=== PATIENT | male | born 1970 | race Caucasian/White ===

== ENCOUNTER 2018-10-09 12:39 | Observation (INO) ==
[2018-10-09] MEDS ORDERED: ASPIRIN PO ONE (12:43)
[2018-10-09] MEDS ORDERED: NITROGLYCERIN TOP ONE (13:15)
--- NOTE | 2018-10-09 13:28 | EKG Report ---
Test Performed on : 10/09/2018 12:47:56 PM Test Reason : cp Blood Pressure : / mmHG Vent. Rate : 070 BPM Atrial Rate : 070 BPM P-R Int : 148 ms QRS Dur : 100 ms QT Int : 362 ms P-R-T Axes : 038 -05 032 degrees QTc Int : 390 ms Normal sinus rhythm. Minimal voltage criteria for LVH, may be normal variant Borderline ECG When compared with ECG of 14-JAN-2017 14:44, No significant change was found Unconfirmed Result
[2018-10-09 13:45] LABS: BASO# 0.03 X1000 (0.0-0.2); BASO% 0.6 % (0.0-0.8); EOS# 0.11 X1000 (0.0-0.7); HEMATOCRIT 43.7 % (42.0-52.0); HEMOGLOBIN 15.4 g/dL (14.0-18.0); LYMPH# 1.53 X1000 (1.2-3.4); LYMPH% 28.3 % (20.5-51.1); MCH 30.2 PG (27-31); MCHC 35.2 g/dL (33-37); MCV 85.7 FL (81-99); MONO# 0.48 X1000 (0.11-0.59); MONO% 8.9 % (1.7-9.3); MPV 10.3 FL (7.4-10.4); NEUT# 3.26 X1000 (1.4-6.5); NEUT% 60.2 % (42.2-75.2); PLT 201 X1000 (130-400); RDW 13.6 % (11.5-14.5); WBC 5.41 X1000 (4.8-10.8)
--- NOTE | 2018-10-09 13:53 | Diag Imaging Result Doc PS360 ---
EXAM: CHEST-2 VIEWS 10/09/2018 HISTORY: cp TECHNIQUE: PA and lateral chest COMMENT: There is no evidence of acute cardiac or pulmonary disease. Compared to 01/14/2017 there has been no significant change. IMPRESSION: Stable chest. Electronically signed by Luis Fernando Gorman 10/09/2018 1:51 PM
[2018-10-09 14:08] LABS: INR 0.96; PROTIME 13.3 Seconds (11.0-16.0)
[2018-10-09 14:09] LABS: PTT 26.4 Seconds (22.3-41.8)
[2018-10-09 14:15] LABS: AGAP 12; ALBUMIN 4.5 g/dL (3.5-5.0); ALKALINE PHOSPHATASE 154 U/L (32-122); BUN 11 mg/dL (8-22); CALCIUM 9.6 mg/dL (8.8-10.2); CHLORIDE 101 mmol/L (98-107); COSMO 279; CREATININE 0.9 mg/dL (0.7-1.2); ESTIMATED GFR > 60; GLUCOSE 100 mg/dL (70-104); GOT 32 U/L (10-34); GPT 35 U/L (10-44); POTASSIUM 3.9 mmol/L (3.5-5.1); SODIUM 140 mmol/L (136-145); TCO2 27 mmol/L (25-35); TOTAL PROTEIN 7.5 g/dL (6.3-8.3)
[2018-10-09 14:25] LABS: CK PROFILE 631 U/L (24-204)
[2018-10-09 15:10] LABS: CK INDEX 2.8 (0.0-2.5)
[2018-10-09] MEDS ORDERED: TYLENOL PO ONE (15:19)
[2018-10-09] MEDS ORDERED: TORADOL IV ONE (15:19)
[2018-10-09] MEDS ORDERED: LOVENOX 1 MG/KG SUBQ ONE (16:16)
[2018-10-09] MEDS ORDERED: MORPHINE IV PRN (16:17)
[2018-10-09] MEDS ORDERED: TYLENOL PO PRN (16:17)
[2018-10-09] MEDS ORDERED: ZOFRAN ODT PO PRN (16:17)
--- NOTE | 2018-10-09 16:17 | PROVIDER DOCUMENTATION ---
This chart was entered by Stephy Lubin Scribe, acting as scribe for Lino Bronson MD. HPI-Chest Pain - General Chief Complaint: Chest Pain Stated Complaint: CHEST PAIN Time Seen by Provider: 10/09/18 13:04 Source: patient Allergies/Adverse Reactions: Patient Allergies Allergy/AdvReac Type Severity Reaction Status Date / Time No Known Allergies Allergy Verified 03/07/13 01:25 Home Medications: Home Medication List Medication Instructions Recorded Confirmed Last Taken Type Allopurinol 100 mg PO QHS 03/07/13 01/14/17 01/13/17 History Omeprazole [Prilosec] 40 mg PO DAILY 03/07/13 01/14/17 01/13/17 History Atorvastatin Calcium 80 mg PO QHS 01/14/17 01/14/17 01/13/17 History Indomethacin [Indomethacin ER] 75 mg PO QHS 01/14/17 01/14/17 01/13/17 History Lisinopril 20 mg PO QHS 01/14/17 01/14/17 01/13/17 History Metformin HCl [Metformin HCl ER] 500 mg PO QHS 01/14/17 01/14/17 01/13/17 History Metoprolol Succinate 100 mg PO QHS 01/14/17 01/14/17 01/13/17 History Nitroglycerin [Nitrolingual] 4.9 gm TL DIRECTED PRN PRN #1 01/14/17 Unknown Rx spray Prasugrel HCl [Effient] 10 mg PO QHS 01/14/17 01/14/17 01/13/17 History Venlafaxine E.r. [Effexor Xr] 150 mg PO DAILY 01/14/17 01/14/17 01/13/17 History - History of Present Illness-CP Nature of Presenting Problem: [id number] presents to ED cc mild chest pain that is tight and lasts about 5 mins, palpitations, sleepiness and SOB since this morning. Pt reports he had a stent placement in 04/2016. Pt denies any recent med changes. Pt has hx of CAD, HTN, DM and hyperlipidemia. Location: reports: substernal Chest Pain Radiation: reports: neck (left side) Quality of Pain: reports: tightness Severity in ED: mild Onset/Duration: this morning Timing: still present, intermittent Context/Activities at Onset: reports: light activity Modifying Factors: improves with: nothing Associated Symptoms: reports: fatigue, shortness of breath Aspirin Treatment Today: 325 mg x 1, provided by ED Prior Chest Pain/Cardiac Workup: reports: stress test Similar Symptoms Previously?: Yes Recently Seen Here or By Another Healthcare Provider: No Review of Systems - Adult - REVIEW OF SYSTEMS - ADULT Constitutional: reports: see HPI, fatique. denies: chills, fever Eyes: reports: no symptoms reported Ears, Nose, Mouth & Throat: reports: no symptoms reported Cardiovascular: reports: see HPI, chest pain, palpitations. denies: edema, syncope Respiratory: reports: see HPI, shortness of breath. denies: cough, wheezing Gastrointestinal: reports: no symptoms reported Genitourinary: reports: no symptoms reported Musculoskeletal: reports: no symptoms reported Integumentary: reports: no symptoms reported Neurological: reports: no symptoms reported Psychiatric: reports: no symptoms reported Endocrine: reports: no symptoms reported Hematologic/Lymphatic: reports: no symptoms reported Allergic/Immunologic: reports: no symptoms reported All Other Systems: Reviewed and Negative Past History - Adult - PAST MEDICAL HISTORY-ADULT Review of Records: reports: Nursing Assessment Review, Medications Reviewed, Social history reviewed & non-contributory. Major Childhood Illnesses: reports: denies history Cardiovascular: reports: CAD, HTN, hyperlipidemia Respiratory: reports: sleep apnea Gastrointestinal: reports: GERD Obstetrical/Gynecological: reports: denies history Genitourinary: reports: denies history Musculoskeletal: reports: denies history Neurological: reports: denies history Endocrine/Immune: reports: Diabetes Other Conditions: reports: denies history - PRIOR SURGERIES/PROCEDURES Surgical/Procedure History: reports: cardiac stent, hernia repair, back/neck - IMMUNIZATION STATUS Childhood Immunizations: See Nurse Assessment Flu Vaccine: See Nurse Assessment - FAMILY HISTORY Family History: reviewed, not pertinent - SOCIAL HISTORY Smoking: denies Substance Use: alcohol Alcohol Use Frequency: rarely Physical Exam-General - PHYSICAL EXAM-ADULT Initial Vital Signs Reviewed: Yes - CONSTITUTIONAL General Appearance: appears well, alert, no apparent distress. negative: anxious, obtunded, combative - EYES Eyes: PERRL/EOMI, pink conjunctivae. negative: meningismus, pale conjunctivae, photophobia - HEAD, EARS, NOSE, MOUTH & THROAT HENMT: normocephalic/atraumatic, moist mucous membranes, normal ENT inspection. negative: angioedema, dental decay, hearing deficit - NECK Neck: non-tender, full range of motion, supple, normal inspection. negative: Brudzinski's sign, carotid bruit, C-spine tenderness - RESPIRATORY Respiratory: chest non-tender, lungs clear, normal breath sounds, no pleuratic chest pain, no respiratory distress, no accessory muscle use. negative: cr ackles, rales, rhonchi, stridor, wheezing - CARDIOVASCULAR Cardiovascular: normal peripheral pulses, regular rate, rhythm, no edema, no gallop, no JVD, no murmur. negative: bradycardia, tachycardia - GASTROINTESTINAL (ABDOMEN) Abdominal Exam: normal bowel sounds, non tender, soft. negative: distended, guarding, rigid, rebound, tenderness - LYMPHATIC Lymphatic: no adenopathy. negative: enlargement, striations, streaking - MUSCULOSKELETAL Back Exam: normal inspection, no CVA tenderness, no vertebral tenderness. negative: swelling Extremity: normal range of motion, non-tender, normal gait, normal inspection, no pedal edema, no calf tenderness, normal capillary refill, pelvis stable. negative: deformity, inflammation - SKIN Integumentary: normal color, normal turgor, warm/dry, other (tattoo 'sleeves' down both arms). 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 negative: facial droop, focal weakness - PSYCHIATRIC Psych/Mental Status: normal mood/affect, normal thought content, normal thought process, oriented x 3. negative: disoriented x 3, anxious, disheveled, depressed affect - HEART Score HEART Score: History: Highly Suspicious HEART Score: ECG: Normal HEART Score: Age: 45-65 Years HEART Score: Risk Factors for Atherosclerotic Disease: > or = 3 Risk Factors or History of Atherosclerotic Disease HEART Score: Troponin: < or = Normal Limit Total HEART Score:: 5 Progress - PLAN OF CARE/RESULTS Progress/Plan/Lab Results: Vital Signs - 8 hr 10/09/18 12:51 10/09/18 12:57 10/09/18 14:12 Temperature 97.4 F L Pulse Rate 73 74 Respiratory Rate 16 18 Blood Pressure 141/90 149/102 O2 Sat by Pulse Oximetry 100 100 Laboratory Results - last 24 hr 06/10/09/18 10/09/18 13:35 13:35 13:35 WBC 5.41 RBC 5.10 Hgb 15.4 Hct 43.7 MCV 85.7 MCH 30.2 MCHC 35.2 RDW Std Deviation 13.6 Plt Count 201 MPV 10.3 Immature Gran % (Auto) 0.0 Neut % (Auto) 60.2 Lymph % (Auto) 28.3 Cowley % (Auto) 8.9 Eos % (Auto) 2.0 Baso % (Auto) 0.6 Immature Gran # (Auto) 0.00 Neut # (Auto) 3.26 Lymph # (Auto) 1.53 Cowley # (Auto) 0.48 Eos # (Auto) 0.11 Baso # (Auto) 0.03 PT INR PTT (Actin FS) Sodium 140 Potassium 3.9 Chloride 101 Carbon Dioxide 27 Anion Gap 12 BUN 11 Creatinine 0.9 Estimated GFR/1.73 m2 > 60 BUN/Creatinine Ratio 12 Glucose 100 Calculated Osmolality 279 Calcium 9.6 Total Bilirubin 0.60 AST 32 ALT 35 Alkaline Phosphatase 154 H Creatine Kinase 631 H Creatine Kinase Index 2.8 H CK-MB (CK-2) 17.60 H Troponin T Xsy-[id number]-Ozcxccuxyaq Pept 8 Total Protein 7.5 Albumin 4.5 Globulin 3.0 Albumin/Globulin Ratio 2.0 10/09/18 10/09/18 10/09/18 13:35 13:35 15:08 WBC RBC Hgb Hct MCV MCH MCHC RDW Std Deviation Plt Count MPV Immature Gran % (Auto) Neut % (Auto) Lymph % (Auto) Cowley % (Auto) Eos % (Auto) Baso % (Auto) Immature Gran # (Auto) Neut # (Auto) Lymph # (Auto) Cowley # (Auto) Eos # (Auto) Baso # (Auto) PT 13.3 INR 0.96 PTT (Actin FS) 26.4 Sodium Potassium Chloride Carbon Dioxide Anion Gap BUN Creatinine Estimated GFR/1.73 m2 BUN/Creatinine Ratio Glucose Calculated Osmolality Calcium Total Bilirubin AST ALT Alkaline Phosphatase Creatine Kinase Creatine Kinase Index CK-MB (CK-2) Troponin T < 0.010 < 0.010 Gsx-G-Bxhtxzipiap Pept Total Protein Albumin Globulin Albumin/Globulin Ratio 10/09/18 15:08 WBC RBC Hgb Hct MCV MCH MCHC RDW Std Deviation Plt Count MPV Immature Gran % (Auto) Neut % (Auto) Lymph % (Auto) Cowley % (Auto) Eos % (Auto) Baso % (Auto) Immature Gran # (Auto) Neut # (Auto) Lymph # (Auto) Cowley # (Auto) Eos # (Auto) Baso # (Auto) PT INR PTT (Actin FS) Sodium Potassium Chloride Carbon Dioxide Anion Gap BUN Creatinine Estimated GFR/1.73 m2 BUN/Creatinine Ratio Glucose Calculated Osmolality Calcium Total Bilirubin AST ALT Alkaline Phosphatase Creatine Kinase 553 H Creatine Kinase Index CK-MB (CK-2) Troponin T Mmw-R-Ekvjqgmhbhg Pept Total Protein Albumin Globulin Albumin/Globulin Ratio Orders Category Date Time Status Cardiac Monitoring DIRECTED Care 10/09/18 12:43 Active Nursing- Obtain EKG once Care 10/09/18 15:00 Active Oxygen Therapy- ED Nursing DIRECTED Care 10/09/18 12:43 Active Saline Loc NOW Care 10/09/18 12:43 Active Heart Healthy Diet Diet 10/09/18 16:14 Active CHEST-2 VIEWS [RAD] Stat Exams 10/09/18 12:43 Completed CBC WITH ELECTRONIC DIFF [HEME] Stat Lab 10/09/18 13:35 Completed CK PROFILE [SP CHEM] Stat Lab 10/09/18 13:35 Completed CK PROFILE [SP CHEM] Stat Lab 10/09/18 15:08 Results COMPREHENSIVE METABOLIC PANEL [CHEM] Stat Lab 10/09/18 13:35 Completed PRO B-NATRIURETIC PEPTIDE Stat Lab 10/09/18 13:35 Completed PROTIME WITH INR [COAG] Stat Lab 10/09/18 13:35 Completed PTT [COAG] Stat Lab 10/09/18 13:35 Completed TROPONIN T Stat Lab 10/09/18 13:35 Completed TROPONIN T Stat Lab 10/09/18 15:08 Completed Acetaminophen [Tylenol] Med 10/09/18 15:19 Discontinued 1,000 mg PO NOW ONE Aspirin Med 10/09/18 12:43 Discontinued 325 mg PO NOW ONE Enoxaparin 1 mg/kg [Lovenox 1 mg/kg] Med 10/09/18 16:16 Once 1 each SUBQ NOW ONE Ketorolac [Toradol] Med 10/09/18 15:19 Discontinued 30 mg IV NOW ONE Nitroglycerin Med 10/09/18 13:15 Discontinued 1 inch TOP NOW ONE CP/SOB/Palp >45 yrs of Age Stat Oth 10/09/18 12:43 Ordered EKG [EKG] Stat Ther 10/09/18 12:43 Draft EKG [EKG] Stat Ther 10/09/18 15:00 Ordered Result Diagrams: 10/09/18 13:35 10/09/18 13:35 - REASSESSMENT Reassessment #1 Time Reassessed: 15:21 Status: improving (CP has recurrede once only, briefly. Complains of throbbing WHITE from NTG. Will give Acetaminophen and toradol for headache. Awaitng second troponin to determine admission vs transfer. I have discussed with patient he would not be going home.) Reassessment #2 Time Reassessed: 16:16 Status: improving - EKG 1 Time of EKG reading by physician:: 12:47 EKG Read and Signed by:: Lino Bronson EKG Interpretation (*Must complete 3 of following elements*): Abnormal Rate: 70 Rhythm: normal sinus QRS: LVH ST Wave: normal - XRAY 1 XRAY: Bilateral XRAY Study: Chest Impression: See EMR Report (IMPRESSION: Stable chest. Electronically signed by Luis Fernando Gorman 10/09/2018 1:51 PM) - CONSULTS/PCP/HOSPITALIST Notification #1 *Consult/PCP/Hospitalist*: Mara Time Discussed: 16:16 Consult Disposition: Admit Departure - Departure Date of Disposition Decision: 10/09/18 Time of Disposition Decision: 16:16 DIAGNOSIS: Unstable angina pectoris due to coronary arteriosclerosis Disposition: ADMITTED INPATIENT 09 Certified Medical Emergency: Emergent Condition: Stable Referrals and Follow-Ups: Juan Munroe MD [Primary Care Provider] - - Critical Care Note This patient required my direct & personal management of CC.: No Attestation - Physician/ DWAIN Attestation Patient care was provided by Advanced Practice Provider:: No The physician spent face to face time with patient:: Yes Advanced Practice Provider documentation review:: Supervising physician onsite and consulted in the evaluation and care of this patient. The physician did have a face to face encounter with the patient. This chart was documented by the indicated scribe, (Stephy Lubin Scribe) and accurately reflects the services I performed and decisions made by Audie joyner Kent A., MD, as attested by the provider's signature.
[2018-10-09 16:21] LABS: CK INDEX 2.8 (0.0-2.5); CK-MB 15.3 ng/mL (0.0-5.0)
[2018-10-09] MEDS ORDERED: LOVENOX SUBQ ONE (16:30)
--- NOTE | 2018-10-09 21:20 | HISTORY AND PHYSICAL ---
CHIEF COMPLAINT: Chest pain. HISTORY OF PRESENT ILLNESS: The patient is a very pleasant 48-year-old male who notes that he has had chest pain with some tightness to the left side of his chest. Notes that he had a stress test on either 06/03 or 06/04 which was abnormal and he had a stent. States that although this pain is similar, it is not quite the same. Notes that he has had some palpitations. He has been more short of breath, more fatigued. ALLERGIES: No known drug allergies. MEDICATIONS: Allopurinol 100, Prilosec 40, atorvastatin 80, indomethacin 75 at bedtime, metformin 500 at bedtime, metoprolol 100. Has been on Effient in the past, but I do not believe he is on that currently. PAST MEDICAL HISTORY: Significant for coronary artery disease status post stenting, hypertension, diabetes, hyperlipidemia, history of reflux. REVIEW OF SYSTEMS: The patient notes he has had increased fatigue, tiredness, some shortness of breath, some chest pain, but no radiation down to his arm. Denies any cough, congestion, other upper respiratory type symptoms. Denies dysuria, frequency, urgency, hesitancy, polyuria, polydipsia, skin rashes, weight loss or weight gain. SURGICAL HISTORY: Patient has had coronary stenting, hernia repair and has had lumbar surgery. FAMILY HISTORY: Positive for coronary artery disease. SOCIAL HISTORY: Patient states he drinks alcohol rarely. Does not smoke or use other illicit substances. PHYSICAL EXAMINATION: VITAL SIGNS: Reviewed. He is currently afebrile. Blood pressure is stable. Heart rate 80s, respiratory 20. GENERAL: Patient is very pleasant. He is in no distress. HEENT: Normocephalic. NECK: Supple. CARDIOVASCULAR: Regular rate. No murmurs. ABDOMEN: Soft, nondistended. EXTREMITIES: Moves all extremities. NEUROLOGIC: No focal changes. SKIN: Warm and dry, no rashes. LABORATORY: Cardiac score is 5. His first troponin is negative. Blood pressure is initially 149/102, currently 130s/90s. CBC normal. ASSESSMENT: 1. Chest pain in a patient with known coronary disease history with a history of stenting. 2. Diabetes. 3. High cholesterol. PLAN: We will admit patient to the hospital, rule out NC. If his enzymes are negative will attempt to schedule a stress test in the morning. Discussed with patient current plan and will follow. The patient understands and has no current questions. cc: Chang Terry MD MTDKathleen
[2018-10-09 21:22] LABS: CK INDEX 2.7 (0.0-2.5); CK-MB 11.57 ng/mL (0.0-5.0)
--- NOTE | 2018-10-10 02:26 | EKG Report ---
Test Performed on : 10/09/2018 9:36:07 PM Test Reason : CP Blood Pressure : / mmHG Vent. Rate : 068 BPM Atrial Rate : 068 BPM P-R Int : 156 ms QRS Dur : 100 ms QT Int : 394 ms P-R-T Axes : 040 -07 032 degrees QTc Int : 418 ms Normal sinus rhythm. Minimal voltage criteria for LVH, may be normal variant Borderline ECG When compared with ECG of 09-OCT-2018 12:47, (Unconfirmed) No significant change was found Confirmed by Charly Roque MD ([id number]) on 10/12/2018 2:27:56 AM
[2018-10-10 04:25] LABS: CK INDEX 2.8 (0.0-2.5); CK-MB 10.29 ng/mL (0.0-5.0)
[2018-10-10] MEDS: PRILOSEC PO SCH ×2 (06:02→13:47)
--- NOTE | 2018-10-10 06:30 | EKG Report ---
Test Performed on : 10/10/2018 03:05:58 AM Test Reason : CP Blood Pressure : / mmHG Vent. Rate : 051 BPM Atrial Rate : 051 BPM P-R Int : 164 ms QRS Dur : 106 ms QT Int : 450 ms P-R-T Axes : 049 004 038 degrees QTc Int : 414 ms Sinus bradycardia. Otherwise normal ECG No previous ECGs available Confirmed by Charly Roque MD ([id number]) on 10/12/2018 2:27:25 AM
--- NOTE | 2018-10-10 09:40 | EKG Report ---
Test Performed on : 10/10/2018 09:05:14 AM Test Reason : CHEST PAIN Blood Pressure : / mmHG Vent. Rate : 061 BPM Atrial Rate : 061 BPM P-R Int : 156 ms QRS Dur : 100 ms QT Int : 412 ms P-R-T Axes : 049 005 033 degrees QTc Int : 414 ms Normal sinus rhythm. Normal ECG When compared with ECG of 10-OCT-2018 03:05, (Unconfirmed) No significant change was found Confirmed by Charly Roque MD ([id number]) on 10/12/2018 2:27:12 AM
[2018-10-10] MEDS: ASPIRIN PO SCH ×2 (10:41→13:47)
[2018-10-10] MEDS ORDERED: NORVASC PO SCH (11:45)
[2018-10-10] MEDS ORDERED: PRINIVIL PO SCH (11:45)
[2018-10-10 12:58] LABS: CK INDEX 2.9 (0.0-2.5); CK-MB 12.26 ng/mL (0.0-5.0)
[2018-10-10] MEDS ORDERED: CYMBALTA PO SCH (13:45)
[2018-10-10] MEDS ORDERED: ZYLOPRIM PO SCH (13:45)
--- NOTE | 2018-10-10 15:49 | Diag Imaging Result Document ---
PROCEDURE NAME: MYOCARDIAL PERF SCAN, STR/REST - 10/10/2018 REFERRING PHYSICIAN: PROCEDURE: Exercise stress test. SUMMARY: 1. The patient exercised on the Juanjose protocol. 2. The patient exercised for 7 minutes and 0 seconds. 3. Peak heart rate of 151 beats per minute, 88% predicted maximal heart rate achieved, 75% exercise capacity. Baseline blood pressure was 150/110. At target heart rate, blood pressure was 191/107. 4. There were no dysrhythmias noted. There was no chest pain. Stress electrocardiogram was negative for ischemia. Cardiolite was injected. 5. Gated SPECT images were obtained in standard views. Total of 14.8 mCi of Cardiolite was injected for the rest phase; 44 mCi of Cardiolite was injected for the stress phase. Images revealed chest wall and diaphragmatic attenuation. There is no evidence of ischemia. Normal left ventricular cavity size. 6. There is small-sized, low-grade, fixed defect in the base of the inferior wall suggestive of attenuation defect. Low probability of scar. 7. Left ventricular ejection fraction by gated SPECT was 74%. CONCLUSIONS: 1. No chest pain. 2. Negative exercise stress electrocardiogram. 3. Baseline hypertension noted There were no dysrhythmias noted. 4. Myocardial perfusion images revealed no evidence of ischemia, there is low-grade, small-sized, fixed defect in the base of the inferior wall suggestive of attenuation defect. 5. Left ventricular ejection fraction by gated SPECT was 74%. cc: MD Cyndee Siddiqui CRNP
[2018-10-10 16:00] VITALS: BP 127/83
--- NOTE | 2018-10-11 04:22 | DISCHARGE SUMMARY ---
ADMISSION DATE: 10/09/2018 DISCHARGE DATE: 10/10/2018 DIAGNOSES: 1. Chest pain in a patient with known coronary artery disease and a history of stenting. 2. Diabetes mellitus. 3. High cholesterol. DIAGNOSTICS: 1. Chest x-ray revealed no evidence of acute cardiac or pulmonary disease. 2. Myocardial perfusion scan revealed negative exercise stress electrocardiogram. Baseline hypertension noted. There were no dysrhythmias noted. Myocardial perfusion images revealed no evidence of ischemia. There is a low grade small sized fixed defect in the base of the inferior wall suggestive of attenuation defect. Left ventricular ejection fraction is 74%. HOSPITAL COURSE: Mr. Jimenez presented to the emergency room after having some left-sided chest pain that did radiate into his left arm. He denied any other symptoms. This did resolve and did not recur. He did state that after having an TN and a stent, he just wanted the reassurance of being evaluated. He underwent a myocardial perfusion scan which was negative. Thankfully, he is ready to be discharged. DISCHARGE PHYSICAL EXAMINATION: Discharge vital signs: Blood pressure is 127/83 with a heart rate of 83, respirations 18, temperature is 98.1 degrees oral with room air saturations 98%. Cardiovascular: Regular rate and rhythm. S1 and S2 appreciated. He has no lower extremity edema. Calves are nontender bilateral with peripheral pulses palpable x4 extremities. Pulmonary: Breath sounds are clear with no increased work of breathing noted. Gastrointestinal: Abdomen is soft, nontender, nondistended with bowel sounds in all 4 quadrants. Neurologic: He is alert oriented x3. Skin: Warm and dry. DISCHARGE MEDICATIONS: 1. Allopurinol 300 mg p.o. daily. 2. Amlodipine 5 mg p.o. daily. 3. Cymbalta 30 mg p.o. daily. 4. Lisinopril 20 mg p.o. daily. 5. Omeprazole 20 mg p.o. daily. FOLLOWUP: 1. He needs to call his primary care provider, Dr. Juan Munroe, in the morning to schedule an appointment in the next 1 to 2 weeks. 2. He has been instructed to call to be seen sooner or return to the ER for any syncope, dizziness, chest pain, palpitations, shortness of breath, cough, temperature greater than 101.5, any chills, any nausea, vomiting, diarrhea, constipation, black or bloody vomitus or stools, hematuria, dysuria, frequency, urgency. He is being discharged home in stable condition with family members. This is a greater than 30 minute discharge. Dictated by LYNDSEY Caballero for Chang Terry MD cc: LYNDSEY Caballero MD Dr. Howard
--- NOTE | 2018-10-11 08:41 | DISCHARGE SUMMARY ---
ADMISSION DATE: 10/09/2018 DISCHARGE DATE: 10/10/2018 ADDENDUM: Discharge summary: Patient was admitted to the hospital with chest pain. Thankfully, this resolved. He underwent a stress test. Thankfully, this was negative. He does have a history of high cholesterol, diabetes. Discussed with patient. He wants to follow up with his primary care outpatient to make sure these are under good control; currently they are. The patient thankfully is safe, awake, alert, and therefore will be discharged home. cc: Chang Terry MD
== END 2018-10-10 18:15 | disposition home or self-care (01) ==
LOC: P.ED 12:39 → P.MEDSURG 12:39
PROVIDERS: ATTEND Family Medicine
CPT/HCPCS: 36415; 71020; 71046; 78452; 80053; 82550; 82553; 83880; 84484; 85025; 85610; 85730; 93005; 93017; A9270; A9500; J1650; J1885